=== PATIENT | female | born 1950 | race Caucasian/White ===

== ENCOUNTER → 2018-02-08 | Outpatient (CLI) | payer OTHER | LOC: FIMAGING 13:57 | DX: Z12.31 Encounter for screening mammogram for malignant neoplasm of breast (principal); Z80.3 Family history of malignant neoplasm of breast ==

== ENCOUNTER → 2019-03-06 | Outpatient (CLI) | payer OTHER | LOC: FIMAGING 10:15 | DX: Z12.31 Encounter for screening mammogram for malignant neoplasm of breast (principal) ==